=== PATIENT | female | born 1995 | race Caucasian/White ===

== ENCOUNTER 2017-01-07 18:11 | Emergency (ER) | payer MEDICAID ==
[2017-01-07] MEDS ORDERED: NS 1,000 ML IV ONE (18:22)
--- NOTE | 2017-01-07 18:24 | EDPHY ---
H & P Stated Complaint: vaginal bleeding passing clots and tissue ,pelvic pain Time Seen by Provider: 01/07/17 18:23 HPI/ROS: HPI: This is a 21-year-old female who presents with Chief Complaint: vaginal bleeding passing clots and tissue, pelvic pain Location: Quality: Vaginal bleeding Duration: 25 days Signs and Symptoms: no fever, + nausea, no vomiting, no hematemesis, no blood in stool, no abdominal bloating, no diarrhea, no back pain, no urinary symptoms , no indigestion, no chest pain, no shortness of breath, + dizziness Timing: Daily Severity: Moderate Context: Patient reports that she has a history of dysfunctional uterine bleeding managed by her primary care provider presents today with 25 days of vaginal bleeding, changing Ultram maxi pad every 1 hour and accompanied by lower pelvic cramping and pain. She was previously on the jaleesa IUD as well as oral control pills without good results so in July her PCP performed a pelvic exam and prescribed ParaGard IUD. Her last sexual intercourse was 5 days ago. She reports that she has not seen much difference in the amount and length of time of her periods. She is eating and drinking normally. No prior history of abdominal surgeries. Denies any concern for sexually transmitted diseases. Modifying Factors: ParaGard Comment: ROS: see HPI Constitutional: No fever, no chills, no weight loss Eyes: No blurred vision Respiratory: No shortness of breath, no cough Cardiovascular: No chest pain, no palpitations Gastrointestinal: + nausea, no vomiting, no diarrhea, no hematemesis, no blood in stool Genitourinary: No dysuria, no blood in urine Extremities: No myalgias, no edema Neurologic: No weakness, no numbness Skin: No rashes, no petechiae Hematologic: No bruising, no bleeding MEDICAL/SURGICAL/SOCIAL HISTORY: Medical history: Dysfunctional uterine bleeding, asthma. Does not take any regular medications. Surgical history: Denies Social history: Student CONSTITUTIONAL: Pleasant young adult white female, awake and alert, no obvious distress HEENT: Atraumatic and normocephalic, PERRL, EOMI. Tympanic membranes clear. Oropharynx clear, no exudate and moist pink mucosa. Airway patent. No lymphadenopathy. No meningismus. Cardiovascular: Normal S1/S2, regular rate, regular rhythm, without murmur rub or gallop. PULMONARY/CHEST: Symmetrical and nontender. Clear to auscultation bilaterally. Good air movement. No accessory muscle usage. ABDOMEN: Soft, nondistended, nontender, no rebound, no guarding, no peritoneal signs, no masses or organomegaly. No CVAT. PELVIC: normal external genitalia, normal cervix, cervical os was closed, 2 IUD strings visualized, no cervical motion tenderness, mild left adnexal mass, no discharge, mild thin bleeding and vaginal vault. The exam was performed with a supervisor composing room. EXTREMITIES: 2/2 pulses, no deformities, no clubbing, no cyanosis or edema. NEUROLOGICAL: no focal neuro deficits. GCS 15. SKIN: Warm and dry, no erythema. no rash. Good capillary refill. Source: Patient Exam Limitations: No limitations - Personal History LMP (Females 10-55): Now Current Tetanus Diphtheria and Acellular Pertussis (TDAP): Yes - Medical/Surgical History Hx Asthma: Yes Hx Chronic Respiratory Disease: No Hx Diabetes: No Hx Cardiac Disease: No Hx Renal Disease: No Hx Cirrhosis: No Hx Alcoholism: No Hx HIV/AIDS: No Hx Splenectomy or Spleen Trauma: No Other PMH: asthma - Social History Smoking Status: Never smoked Constitutional: Initial Vital Signs Temperature (C) 36.6 C 01/07/17 18:13 Heart Rate 75 01/07/17 18:13 Respiratory Rate 16 01/07/17 18:13 Blood Pressure 122/62 H 01/07/17 18:13 O2 Sat (%) 100 01/07/17 18:13 O2 Delivery Mode Room Air Allergies/Adverse Reactions: No Known Allergies Allergy (Unverified 01/07/17 18:17) Home Medications: Medication Instructions Recorded Periogard 01/07/17 Medical Decision Making - Diagnostics Imaging Results: Imaging Impressions Pelvic/Renal Ultrasound 01/07/17 18:22 Impression: 1. 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 2. Normal appearance of the ovaries with a 1.7 cm follicular cyst associated with the left ovary. There is no torsion. 3. Small amount of free fluid in the cul-de-sac. Findings were discussed with Birdie Lucero PA-C at 21:02, on 01/07/2017. ED Course/Re-evaluation: Labs, urinalysis, ultrasound, IV fluids ordered 5: Labs reviewed; H&H within normal limits Given IV Toradol 30 mg and p.o. Flexeril with moderate relief of pain. UA shows 2+ blood consistent with menses, no signs of infection. Not Called by Radiology who advised bicornuate uterus; with IUD extending into myometrium. No signs of ectopic /ovarian torsion/hemorrhage. 0: Spoke with Dr. Borges regarding ultrasound results and she advises since pain is minimal and labs and vital signs are stable, patient can call her office in the morning to be seen and have the IUD removed. [id number]: Reassessed patient and pain down to 3/10. Abdomen is soft with minimal lower abdominal tenderness. Discussed the conversation with Dr. Borges and patient feels comfortable going home this evening and being seen by Dr. Borges tomorrow. Percocet prepack given. Differential Diagnosis: Vaginal bleeding including but not limited to ectopic , menses, miscarriage, and dysfunctional uterine bleeding. - Data Points Laboratory Results: Laboratory Results 01/07/17 18:30 01/07/17 18:30 01/07/17 01/07/17 01/07/17 19:52 18:30 18:30 WBC RBC Hgb Hct MCV MCH MCHC RDW Plt Count MPV Neut % (Auto) Lymph % (Auto) Simpson % (Auto) Eos % (Auto) Baso % (Auto) Nucleat RBC Rel Count Absolute Neuts (auto) Absolute Lymphs (auto) Absolute Monos (auto) Absolute Eos (auto) Absolute Basos (auto) Absolute Nucleated RBC Immature Gran % Immature Gran # Sodium 138 mEq/L mEq/L (134-144) Potassium 4.1 mEq/L mEq/L (3.5-5.2) Chloride 104 mEq/L mEq/L (97-110) Carbon Dioxide 23 mEq/l mEq/l (22-31) Anion Gap 11 mEq/L mEq/L (8-16) BUN 10 mg/dL mg/dL (7-23) Creatinine 0.6 mg/dL mg/dL (0.6-1.0) Estimated GFR > 60 Glucose 90 mg/dL mg/dL (70-100) Calcium 9.7 mg/dL mg/dL (8.5-10.4) Beta HCG, Qual NEGATIVE Urine Color COLORLESS Urine Appearance CLEAR Urine pH 7.0 (5.0-7.5) Ur Specific [place] 1.003 (1.002-1.030) Urine Protein NEGATIVE (NEGATIVE) Urine Ketones NEGATIVE (NEGATIVE) Urine Blood 2+ H (NEGATIVE) Urine Nitrate NEGATIVE (NEGATIVE) Urine Bilirubin NEGATIVE (NEGATIVE) Urine Urobilinogen NEGATIVE EU EU (0.2-1.0) Ur Leukocyte Esterase NEGATIVE (NEGATIVE) Urine RBC 1-3 /hpf /hpf (0-3) Urine WBC 1-3 /hpf /hpf (0-3) Ur Epithelial Cells TRACE /lpf /lpf (NONE-1+) Urine Glucose NEGATIVE (NEGATIVE) 01/07/17 18:30 WBC 6.80 10^3/uL 10^3/uL (3.80-9.50) RBC 4.08 10^6/uL L 10^6/uL (4.18-5.33) Hgb 12.9 g/dL g/dL (12.6-16.3) Hct 36.5 % L % (38.0-47.0) MCV 89.5 fL fL (81.5-99.8) MCH 31.6 pg pg (27.9-34.1) MCHC 35.3 g/dL g/dL (32.4-36.7) RDW 12.2 % % (11.5-15.2) Plt Count 441 10^3/uL H 10^3/uL (150-400) MPV 9.1 fL fL (8.7-11.7) Neut % (Auto) 63.5 % % (39.3-74.2) Lymph % (Auto) 25.4 % % (15.0-45.0) Simpson % (Auto) 8.1 % % (4.5-13.0) Eos % (Auto) 1.8 % % (0.6-7.6) Baso % (Auto) 0.9 % % (0.3-1.7) Nucleat RBC Rel Count 0.0 % % (0.0-0.2) Absolute Neuts (auto) 4.32 10^3/uL 10^3/uL (1.70-6.50) Absolute Lymphs (auto) 1.73 10^3/uL 10^3/uL (1.00-3.00) Absolute Monos (auto) 0.55 10^3/uL 10^3/uL (0.30-0.80) Absolute Eos (auto) 0.12 10^3/uL 10^3/uL (0.03-0.40) Absolute Basos (auto) 0.06 10^3/uL 10^3/uL (0.02-0.10) Absolute Nucleated RBC 0.00 10^3/uL 10^3/uL (0-0.01) Immature Gran % 0.3 % % (0.0-1.1) Immature Gran # 0.02 10^3/uL 10^3/uL (0.00-0.10) Sodium Potassium Chloride Carbon Dioxide Anion Gap BUN Creatinine Estimated GFR Glucose Calcium Beta HCG, Qual Urine Color Urine Appearance Urine pH Ur Specific [place] Urine Protein Urine Ketones Urine Blood Urine Nitrate Urine Bilirubin Urine Urobilinogen Ur Leukocyte Esterase Urine RBC Urine WBC Ur Epithelial Cells Urine Glucose Medications Given: Discontinued Medications Cyclobenzaprine HCl (Flexeril) 10 mg PO EDNOW ONE Stop: 01/07/17 19:13 Last Admin: 01/07/17 19:14 Dose: 10 mg Sodium Chloride (Ns) 1,000 mls @ 0 mls/hr IV ONCE ONE; Wide Open PRN Reason: Protocol Stop: 01/07/17 18:23 Last Admin: 01/07/17 18:31 Dose: 1,000 mls Ketorolac Tromethamine (Toradol) 30 mg IVP EDNOW ONE Stop: 01/07/17 19:13 Last Admin: 01/07/17 19:14 Dose: 30 mg Departure - Departure Disposition: Home, Routine, Self-Care Clinical Impression: Dysfunctional uterine bleeding IUD migration Qualifiers: Encounter type: initial encounter Qualified Code(s): T83.89XA - Other specified complication of genitourinary prosthetic devices, implants and grafts , initial encounter Condition: Good Instructions: Dysfunctional Uterine Bleeding (ED) Additional Instructions: Please call Dr. Borges's office in the morning for your appointment time tomorrow. He may continue to take ibuprofen 600-800 mg with food every 6-8 hours as needed for pain. A Percocet take-home pack has been given. Please take 1 tablet every 4 hours for severe or breakthrough pain. Please follow pelvic rest until cleared by OBGYN. Referrals: [facility] [Other] - As per Instructions Ashley Borges, [Doctor of Osteopathy] - 1 day without fail Stand Alone Forms: School Excuse
[2017-01-07 18:45] LABS: % IMMATURE GRANULYOCYTES 0.3 % (0.0-1.1); ABSOLUTE IMMATURE GRANULOCYTES 0.02 10^3/uL (0.00-0.10); ADD DIFF? NO; ADD MORPH? NO; ADD SCAN? NO; ATYPICAL LYMPHOCYTE FLAG 20 (0-99); FRAGMENT RBC FLAG 0 (0-99); HEMATOCRIT 36.5 % (38.0-47.0); HEMOGLOBIN 12.9 g/dL (12.6-16.3); LEFT SHIFT FLG 0 (0-99); LIPEMIA HEMOLYSIS FLAG 90 (0-99); MEAN CELL HEMOGLOBIN 31.6 pg (27.9-34.1); MEAN CELL HEMOGLOBIN CONCENTR. 35.3 g/dL (32.4-36.7); MEAN CELL VOLUME 89.5 fL (81.5-99.8); MEAN PLATELET VOLUME 9.1 fL (8.7-11.7); PLATELET CLUMPS FLAG 0 (0-99); PLATELET COUNT 441 10^3/uL (150-400); RED BLOOD CELL COUNT 4.08 10^6/uL (4.18-5.33); RED CELL DISTRIBUTION WIDTH 12.2 % (11.5-15.2)
[2017-01-07 18:59] LABS: ANION GAP 11 mEq/L (8-16); CALCIUM 9.7 mg/dL (8.5-10.4); CARBON DIOXIDE 23 mEq/l (22-31); CHLORIDE 104 mEq/L (97-110); CREATININE 0.6 mg/dL (0.6-1.0); GLOMERULAR FILTRATION RATE > 60; GLUCOSE 90 mg/dL (70-100); POTASSIUM 4.1 mEq/L (3.5-5.2); SODIUM 138 mEq/L (134-144)
[2017-01-07] MEDS ORDERED: KETOROLAC 30 MG/1 ML SDV IVP ONE (19:12)
[2017-01-07] MEDS ORDERED: CYCLOBENZAPRINE 10 MG TAB PO ONE (19:12)
[2017-01-07 20:02] LABS: COLOR COLORLESS; LEUKOCYTE ESTERASE,URINE NEGATIVE (NEGATIVE); NITRITE,URINE NEGATIVE (NEGATIVE)
[2017-01-07] MEDS ORDERED: OXYCODONE/APAP 5/325MG PREPACK#4 BTL TAKEHOME ONE ×2 (21:46→21:47)
[2017-01-07 21:57] VITALS: O2SAT 99
[2017-01-07 21:58] VITALS: BP 118/66; PULSE 69; RESP 18; TEMP 98.1
== END 2017-01-07 21:58 | disposition home or self-care (01) ==
PROC: 3E0337Z Introduction of Electrolytic and Water Balance Substance into Peripheral Vein, Percutaneous Approach (ICD-10-PCS; principal; 2017-01-07)
DX: N93.8 Other specified abnormal uterine and vaginal bleeding (principal); T83.89XA Other specified complication of genitourinary prosthetic devices, implants and grafts, initial encounter; J45.909 Unspecified asthma, uncomplicated; E86.9 Volume depletion, unspecified; Y82.8 Other medical devices associated with adverse incidents
CPT/HCPCS: 96374; J1885

== ENCOUNTER 2017-05-19 16:13 | Emergency (ER) | payer MEDICAID ==
[2017-05-19 16:17] VITALS: TEMP 98.6
[2017-05-19] MEDS ORDERED: DEXAMETHASONE 4 MG TAB PO ONE (17:23)
[2017-05-19] MEDS ORDERED: KETOROLAC 30 MG/1 ML SDV IM ONE (17:23)
--- NOTE | 2017-05-19 17:28 | EDPHY ---
H & P Time Seen by Provider: 05/19/17 16:52 HPI/ROS: HPI Sore throat. 21-year-old female by private vehicle with her friend. This patient reports that for the last 3 days she has had a worsening sore throat. She states that it is similar to the pain she experienced when she had strep throat 3 years ago. She is able to swallow liquids and solids. No voice changes. She denies any stridor difficulty breathing. Subjective fever. No other complaints. ROS: Constitutional: As above, no chills. No weakness. Eyes: No discharge. No changes in vision. ENT: As above. No nasal congestion or rhinorrhea. Respiratory: No cough. No shortness of breath. Cardiac: No chest pain, no palpitations. Gastrointestinal: No abdominal pain, no vomiting, no diarrhea. Genitourinary: No hematuria. No dysuria or increased frequency with urination. Musculoskeletal: No back pain. No neck pain. No myalgias or arthralgias. Skin: No rashes. Neurological: No headache. No focal weakness or altered sensation. Past medical history: Asthma. No other significant past medical history. Social history: Student [employer]. Here with her friend. Denies alcohol. Nonsmoker. Physical Exam: General Appearance: Alert, no distress. This patient is responding to questions appropriately and in full sentences. This patient appears well- hydrated and well-nourished. Eyes: Pupils equal and round no pallor or injection. No lid edema, erythema or injection. ENT, Mouth: Mucous membranes are moist. The pharyngeal tissues are generally unremarkable. No edema or swelling. No asymmetry suggestive of abscess. Mild pharyngeal erythema which is diffuse. No exudates. No stridor on auscultation of her neck. No voice changes. No cervical, submandibular, submental lymphadenopathy. Respiratory: There are no retractions, lungs are clear to auscultation with good air movement bilaterally. Cardiovascular: Regular rate and rhythm. No murmur. Neurological: Motor sensory function is grossly intact. Cranial nerves are normal. Gait is normal. Skin: Warm and dry, no rashes. Musculoskeletal: Neck is supple and nontender. Extremities are symmetrical. All joints range without pain or impingement. Psychiatric: No agitation. No depression. Database: EKG: Imaging: Procedures: Emergency department course: Vital signs reviewed and are within normal limits. She has no contraindications to NSAIDs. No history of renal dysfunction or peptic ulcer disease. She will be given intramuscular Toradol as well as oral Decadron. Rapid strep obtained. 6:20 p.m., patient re-evaluated. Results of rapid strep discussed with her. She is feeling better after above medications. She feels comfortable going home with her friend. I will have her follow up at the [facility] tomorrow for re-evaluation. Return to emergency department precautions were thoroughly reviewed with her. All of her questions were answered. She was discharged in good condition with her friend. Differential Diagnosis: The differential diagnosis on this patient includes but is not limited to viral pharyngitis. Streptococcal pharyngitis, retropharyngeal abscess, peritonsillar abscess, tracheitis, epiglottitis unlikely. This represents a partial list of diagnoses considered. These considerations are based on history, physical exam , past history, reassessment and diagnostic testing. Smoking Status: Never smoked Constitutional: Initial Vital Signs Temperature (C) 37 C 05/19/17 16:16 Heart Rate 90 05/19/17 16:16 Respiratory Rate 16 05/19/17 16:16 Blood Pressure 128/83 H 05/19/17 16:16 O2 Sat (%) 97 05/19/17 16:16 O2 Delivery Mode Room Air Allergies/Adverse Reactions: No Known Allergies Allergy (Unverified 01/07/17 18:17) Home Medications: Medication Instructions Recorded Periogard 01/07/17 Dexamethasone [Decadron 4 MG (RX)] 8 mg PO ONCE #2 tab 05/19/17 Medical Decision Making - Data Points Laboratory Results: 05/19/17 05/19/17 Unknown 17:04 Group A Strep Screen NEGATIVE (NEGATIVE) Group A Strep DNA Pending Medications Given: Discontinued Medications Dexamethasone (Decadron) 10 mg PO EDNOW ONE Stop: 05/19/17 17:24 Last Admin: 05/19/17 18:13 Dose: 10 mg Ketorolac Tromethamine (Toradol) 60 mg IM EDNOW ONE Stop: 05/19/17 17:24 Last Admin: 05/19/17 18:12 Dose: 60 mg Departure - Departure Disposition: Home, Routine, Self-Care Clinical Impression: Pharyngitis Condition: Good Instructions: Pharyngitis (ED) Additional Instructions: Read and follow provided instructions. Follow-up with your primary care physician at the [facility] tomorrow for re-evaluation. Do not take ibuprofen until tomorrow morning. Ibuprofen dosin mg every 6 hours with meals for the next 3 days only. Take only as needed for pain. 1 time dose of Decadron anti-inflammatory medication to be taken tomorrow afternoon. Return to the emergency department for worsening pain, difficulty swallowing, voice changes, stridor, difficulty breathing or other serious concerns. Referrals: NONE *PRIMARY CARE P,. [Primary Care Provider] - As per Instructions Prescriptions: Dexamethasone [Decadron 4 MG (RX)] 8 mg PO ONCE #2 tab
[2017-05-19 18:40] VITALS: BP 114/71; PULSE 84; RESP 18; O2SAT 94
== END 2017-05-19 18:40 | disposition home or self-care (01) ==
DX: J02.9 Acute pharyngitis, unspecified (principal); J45.909 Unspecified asthma, uncomplicated
CPT/HCPCS: J1885

== ENCOUNTER 2017-06-25 15:40 | Emergency (ER) | payer MEDICAID ==
--- NOTE | 2017-06-25 17:05 | EDPHY ---
H & P Stated Complaint: slipped in shower last night hit head, h/a-no neck pain - Personal History LMP (Females 10-55): Extended Cycle BCP/Inj Current Tetanus/Diphtheria Vaccine: No Current Tetanus Diphtheria and Acellular Pertussis (TDAP): No - Medical/Surgical History Hx Asthma: Yes Hx Chronic Respiratory Disease: No Hx Diabetes: No Hx Cardiac Disease: No Hx Renal Disease: No Hx Cirrhosis: No Hx Alcoholism: No Hx HIV/AIDS: No Hx Splenectomy or Spleen Trauma: No Other PMH: asthma - Social History Smoking Status: Never smoked Time Seen by Provider: 06/25/17 16:54 HPI/ROS: CHIEF COMPLAINT: Head injury, progressive headache HISTORY OF PRESENT ILLNESS: 21-year-old female arrives via private vehicle stating last evening while stepping in the shower she sustained a mechanical fall, slipped in the water impacting the left occiput of her head with positive loss of consciousness. She has been complaining of progressive headache, increased somnolence today. No nausea or vomiting. No gait instability. No slurred speech. REVIEW OF SYSTEMS: [A ten point review of systems was performed and is negative with the exception of the items mentioned in the HPI] PAST MEDICAL/SURGICAL HISTORY: [no anticoagulant use,] [no relevant medical/ surgical history] SOCIAL HISTORY: [denies alcohol use at time of incident] PHYSICAL EXAM 1) GENERAL: [Well-developed, well-nourished, alert and oriented. Somnolent. Appears to be in no acute distress. Answering questions appropriately.] 2) HEAD: [Normocephalic, positive left occipital hematoma, tenderness. No laceration or abrasion] 3) HEENT: [Pupils equal, round, reactive to light bilaterally. Negative Horners. Nasopharynx, oropharynx, clear. No deformity or angulation of nose. No septal hematoma. No rhinorrhea. No oral trauma. Ears bilaterally with normal tympanic membranes. No hemotympanum. No fluid or blood in the external auditory canal. No raccoon eyes. No Cherry sign. Teeth are normally aligned with no gross malocclusion, TMJ bilaterally nontender, facial bones nontender including the zygomatic arch, maxilla mandible.] 4) NECK: [No cervical collar is on. Posterior cervical spine is nontender, no stepoff, no effusion. Full range of motion which does not elicit any midline cervical spine pain, no posterior midline tenderness, no step-off.] 5) LUNGS: [Clear to auscultation bilaterally, no wheezes, no rhonchi, no retractions. No obvious signs of trauma. No chest wall pain. No flaring, no grunting. Moving symmetrically. No crepitus.] 6) HEART: [Regular rate and rhythm, 7) ABDOMEN: [No guarding, no rebound, no focal tenderness, no peritoneal signs, no signs of trauma, no ecchymosis] 8) MUSCULOSKELETAL: [Moving all extremities, no focal areas of tenderness, no obvious trauma.] 9) BACK: [Patient logrolled while holding inline traction.][No midline vertebral tenderness, no fluctuance, no step-off, no obvious trauma, no visual or palpable abnormality.] 10) SKIN: [ No laceration. No abrasion] 11) NEURO: Awake, alert, and oriented to person, place and time. Answers questions appropriately. There were no obvious focal neurologic abnormalities. No cerebellar dysfunction. Cranial nerves 2 through to 12 intact. Normal steady gait. Upper and lower extremities bilaterally with strength 5 / 5, reflexes 2+. DIFFERENTIAL DIAGNOSIS: [ Not necessarily in any particular order, my differential diagnosis includes, but is not limited to, concussion, skull fracture, intraparenchymal contusion, subarachnoid, subdural and epidural hematoma. The patient understands that this diagnosis is provisional and can never be 100% accurate. ] (Brian Shultz) Constitutional: Initial Vital Signs Temperature (C) 36.6 C 06/25/17 15:43 Heart Rate 90 06/25/17 15:43 Respiratory Rate 16 06/25/17 15:43 Blood Pressure 127/73 H 06/25/17 15:43 O2 Sat (%) 98 06/25/17 15:43 O2 Delivery Mode Room Air Allergies/Adverse Reactions: No Known Allergies Allergy (Verified 06/25/17 15:42) Home Medications: Medication Instructions Recorded Nexplanon 06/25/17 Medical Decision Making - Diagnostics Imaging Results: Images reviewed myself (Brian Shultz) ED Course/Re-evaluation: 5:03 p.m.:Head CT ordered in this patient for trauma for the following indication: severe headache, loss of consciousness and headache. Indications risks benefits of CT imaging including, but not limited to, radiation exposure, financial cost, discussed with patient and she consents. Care of patient under supervision of secondary supervising physician Dr Coleman with with whom I discussed case 5:34 p.m.: Re-evaluation. Discussed with the patient her imaging studies showing no posttraumatic sequelae. Discussed limitations of imaging. I do not think that further imaging is indicated, I do not think that hospitalization is indicated. We discussed usual and customary head injury precautions, 2nd impact syndrome, post concussive syndrome. Given follow-up information. Discussed cognitive and physical rest. She feels comfortable being discharged. All questions and concerns addressed by myself. (Brian Shultz) Other Provider: The patient was evaluated and managed by the Physician [employer]. My co- signature indicates that I have reviewed this chart and I agree with the findings and plan of care as documented. I am the secondary supervising physician. (Oly Coleman) Departure - Departure Disposition: Home, Routine, Self-Care Clinical Impression: Head injury due to trauma Condition: Good Instructions: Concussion (ED), Head Injury (ED) Additional Instructions: ALTHOUGH THERE IS NO EVIDENCE OF SERIOUS HEAD INJURY AT THIS TIME, DELAYED SIGNS CAN APPEAR 24 TO 48 HOURS AFTER INJURY. PLEASE RETURN TO THE EMERGENCY DEPARTMENT (ED) IMMEDIATELY IF YOU HAVE INCREASED HEADACHE, PERSISTENT HEADACHE , VOMITING, WEAKNESS, CONFUSION OR VISUAL PROBLEMS. WE RECOMMEND THAT YOU DO NOT RESUME CONTACT SPORTS OR ACTIVITIES THAT TAKE COORDINATION OR BALANCE SUCH SKIING OR RIDING A BICYCLE UNTIL CLEARED TO DO SO BY YOUR DOCTOR OR BY A NEUROLOGIST. Referrals: Noelle Dejesus MD [Medical Doctor] - 5-7 days, call for appt. Stand Alone Forms: School Excuse, Work Excuse
[2017-06-25 18:03] VITALS: BP 113/69
== END 2017-06-25 18:03 | disposition home or self-care (01) ==
DX: S09.90XA Unspecified injury of head, initial encounter (principal); J45.909 Unspecified asthma, uncomplicated; W01.198A Fall on same level from slipping, tripping and stumbling with subsequent striking against other object, initial encounter; Y99.8 Other external cause status; Y93.89 Activity, other specified